=== PATIENT | female | born 1945 | race African-American/Black ===

== ENCOUNTER 2016-08-27 19:43 | Inpatient (IN) | payer MEDICARE ==
[~2016-08-27] VITALS: Ht 167.6 cm; Wt 143.6 kg
[~2016-08-27 19:43] MED LIST: ADVAIR INH; CRESTOR PO; FURO40TA5 PO; INSULIN DETEMIR SUBCUT; IPRA3AMP9 HHN; LEVO500T15 PO; LEVOTHROXINE PO; Metoprolol Tartrate PO; P50 PO; PANT40TA4 PO; PHEN100C4 PO; PULM50 HHN
[2016-08-27] MEDS ORDERED: LEVOFLOXACIN 750MG PREMIX 150 ML IV ONE (21:15)
[2016-08-27] MEDS ORDERED: VANCOMYCIN 1 G PREMIX 200 ML IV ONE (21:15)
[2016-08-27] MEDS ORDERED: MORPHINE SULFATE 4 MG/ML CPJ (NOT FOR IM USE) IV STA (21:15)
[2016-08-27] MEDS ORDERED: ONDANSETRON HCL 4MG/2ML VIAL IV STA (21:15)
[2016-08-27 21:48] LABS: INR 1.1; PROTHROMBIN TIME 11.9 sec
[2016-08-27 21:50] LABS: ALBUMIN 2.7 g/dL (3.4-5.0); CALCIUM 8.8 mg/dL (8.5-10.1); CHLORIDE 90 mEq/L (98-107); INDEX HEMOLYSI 1 (1-3); INDEX ICTERIC 1 (1-4); INDEX LIPEMIC 1 (1-3); UREA NITROGEN BLOOD 8 mg/dL (7-21)
[2016-08-27 21:51] LABS: BASOPHILS % 0.6 % (0.0-2.0); EOSINOPHILS % 0.1 % (0.0-5.0); HEMATOCRIT. 32.3 % (36.0-48.0); HEMOGLOBIN. 10.5 g/dL (12.0-16.0); LYMPHOCYTES % 20.3 % (20.0-50.0); MEAN CORPUSCULAR HEMOGLOBIN 31.7 pg (28.0-32.0); MEAN CORPUSCULAR HGB CONC 32.4 g/dL (31.0-37.0); PLATELET 338 x1000/uL (130-400); WHITE BLOOD COUNT 7.4 x1000/uL (4.5-11.0)
[2016-08-27 21:54] LABS: ALANINE AMINOTRANSFERASE 9 IU/L (13-61); ANION GAP 9; eGFR > 60 mL/min (>60)
[2016-08-27 21:56] LABS: NT PRO B-TYPE NATRIURETIC PEP 1311 pg/mL (5-125); TROPONIN I < 0.02 ng/mL (0.00-0.04)
[2016-08-27 21:57] LABS: CARBON DIOXIDE 42 mEq/L (21-32)
[2016-08-28] MEDS ORDERED: MORPHINE SULFATE 4 MG/ML CPJ (NOT FOR IM USE) IV ONE (00:30)
[2016-08-28] MEDS ORDERED: ONDANSETRON HCL 4MG/2ML VIAL IV ONE (00:30)
[2016-08-28] MEDS ORDERED: SODIUM CHLORIDE 0.9% 1,000 ML IV SCH (00:31)
[2016-08-28 00:38] LABS: CLARITY URINE TURBID (CLEAR); COLOR URINE DARK YELLOW (YELLOW); GLUCOSE URINE NEGATIVE (NEGATIVE); KETONES URINE TRACE (NEGATIVE); LEUKOCYTE ESTERASE URINE 2+ (NEGATIVE); NITRITE URINE NEGATIVE (NEGATIVE); OCCULT BLOOD URINE NEGATIVE (NEGATIVE); PH URINE 7.5 (4.5-8.0); PROTEIN URINE 1+ (NEGATIVE); SPECIFIC GRAVITY URINE 1.034 (1.005-1.030)
[2016-08-28] MEDS ORDERED: IPRATROPIUM/ALBUTEROL 0.5-3(2.5)MG/3ML NEB INH PRN ×2 (00:45→13:15)
[2016-08-28] MEDS ORDERED: DOCUSATE SODIUM 100MG CAPSULE PO PRN ×2 (00:45→13:15)
[2016-08-28] MEDS ORDERED: LORAZEPAM 2MG/ML CPJ IV ONE (00:45)
[2016-08-28] MEDS ORDERED: ACETAMINOPHEN 325MG TABLET PO PRN (00:45)
[2016-08-28] MEDS ORDERED: ONDANSETRON HCL 4MG/2ML VIAL IV PRN ×2 (00:45→13:15)
[2016-08-28 01:36] LABS: MUCUS URINE TRACE /lpf (< = 2+)
[2016-08-28 01:37] LABS: RBC URINE 0-2 /hpf (0-2)
[2016-08-28 01:41] LABS: SQUAMOUS EPITHELIAL CELL URINE FEW /lpf (RARE/1+)
[2016-08-28 01:42] LABS: BACTERIA URINE 4+; WBC URINE 50-100 /hpf (0-2)
[2016-08-28] MEDS ORDERED: DEXTROSE 50% WATER 50ML SYRINGE IV PRN (03:15)
[2016-08-28 03:45] VITALS: BP 90/61
[2016-08-28 05:16] VITALS: BP 107/56
[2016-08-28] MEDS: HYDROCODONE/ACETAMINOPHEN 5/325MG TABLET PO PRN ×2 (05:19→10:10)
[2016-08-28 05:23] LABS: *AMPHETAMINES SCREEN URINE NEGATIVE (NEGATIVE); *BARBITURATES SCREEN URINE NEGATIVE (NEGATIVE); *BENZODIAZEPINES SCREEN URINE NEGATIVE (NEGATIVE); *COCAINE SCREEN URINE NEGATIVE (NEGATIVE); CANNABINOID URINE SCREEN NEGATIVE (NEGATIVE); ECSTASY MDMA SCREEN URINE NEGATIVE (NEGATIVE); METHADONE URINE SCREEN NEGATIVE (NEGATIVE); OPIATES URINE SCREEN PRESUMTIVE POSITIVE (NEGATIVE); PHENCYCLIDINE URINE SCREEN NEGATIVE (NEGATIVE)
[2016-08-28] MEDS: BLOOD SUGAR DIAGNOSTIC STRIP TEST SCH ×4 (06:27→21:00)
[2016-08-28] MEDS: OMEPRAZOLE 20MG CAPSULE EXTENDED RELEASE PO SCH (06:29)
[2016-08-28] MEDS ORDERED: POTASSIUM CHLORIDE 20MEQ TABLET SR PO SCH ×2 (06:30→13:00)
[2016-08-28 07:26] LABS: HEMATOCRIT. 30.7 % (36.0-48.0); HEMOGLOBIN. 9.8 g/dL (12.0-16.0); MEAN CORPUSCULAR HEMOGLOBIN 31.2 pg (28.0-32.0); MEAN CORPUSCULAR HGB CONC 31.9 g/dL (31.0-37.0); MEAN CORPUSCULAR VOLUME 97.7 fL (81.0-99.0); PLATELET 335 x1000/uL (130-400); RED BLOOD CELL COUNT 3.14 mill/uL (4.2-5.4); RED CELL DISTRIBUTION WIDTH 14.2 % (11.6-14.6); WHITE BLOOD COUNT 6.2 x1000/uL (4.5-11.0)
[2016-08-28 07:53] LABS: ANION GAP 9; CALCIUM 8.7 mg/dL (8.5-10.1); CHLORIDE 90 mEq/L (98-107); INDEX HEMOLYSI 1 (1-3); INDEX ICTERIC 1 (1-4); INDEX LIPEMIC 1 (1-3); UREA NITROGEN BLOOD 7 mg/dL (7-21); eGFR > 60 mL/min (>60)
[2016-08-28 08:00] VITALS: BP 109/58
[2016-08-28 08:00] LABS: CARBON DIOXIDE 42 mEq/L (21-32)
[2016-08-28] MEDS: INSULIN LISPRO 100 UNITS/ML SUBCUT SCH ×4 (08:47→22:06)
[2016-08-28] MEDS ORDERED: ENOXAPARIN 40MG/0.4ML SYR SUBCUT SCH ×2 (09:00→13:15)
[2016-08-28 12:00] VITALS: BP 110/61
[2016-08-28] MEDS ORDERED: VANCOMYCIN 1500MG in DEXTROSE 5% WATER 250ML IV SCH (12:00)
[2016-08-28 12:35] LABS: PLATELET ESTIMATE NORMAL
[2016-08-28] MEDS ORDERED: MORPHINE SULFATE 2 MG/ML CPJ (NOT FOR IM USE) IV PRN (13:15)
[2016-08-28 14:07] LABS: INDEX HEMOLYSI 1 (1-3); INDEX ICTERIC 1 (1-4); INDEX LIPEMIC 1 (1-3); IRON 66 ug/dL (50-175); TOTAL IRON BINDING CAPACITY 285 ug/dL (250-450)
[2016-08-28] MEDS ORDERED: ACETAMINOPHEN WITH CODEINE 300/60MG TABLET PO PRN (14:30)
[2016-08-28 15:02] LABS: BG BASE EXCESS 13.1 mmol/L (-2.0-2.0); BG CARBOXYHEMOGLOBIN 0.8 % (0.5-1.5); BG DEOXYHEMOGLOBIN 7.9 % (0.0-5.0); BG FRACTION INSPIRED OXYGEN 21; BG HCO3 ACT 38.7 mmol/L (22.0-26.0); BG METHEMOGLOBIN 0.3 % (0.0-1.5); BG PCO2 55.6 mmHg (35.0-45.0); BG PH 7.461 (7.350-7.450); BG PO2 58.6 mmHg (75.0-100.0); BG SAMPLE SITE LEFT RADIAL; BG TOTAL HEMOGLOBIN 10.5 g/dL (12.0-18.0); BG VENT MODE ROOM AIR
[2016-08-28] MEDS ORDERED: CLOP75TA33 PO (15:06)
[2016-08-28] MEDS ORDERED: ONDA4TAB5 PO (15:06)
[2016-08-28] MEDS ORDERED: PRED5TAB48 PO (15:06)
[2016-08-28] MEDS ORDERED: CLON0.1T PO (15:06)
[2016-08-28] MEDS ORDERED: CLONIDINE 0.1MG TABLET PO PRN (15:15)
[2016-08-28 16:00] VITALS: BP 107/55
[2016-08-28] MEDS: CLOPIDOGREL 75MG TABLET PO SCH (16:19)
[2016-08-28] MEDS: CLOTRIMAZOLE 1% CREAM 30GM TOP SCH ×2 (16:19→21:59)
[2016-08-28] MEDS: PHENYTOIN SODIUM EXTENDED 100MG CAPSULE PO SCH (16:19)
[2016-08-28] MEDS ORDERED: VANCOMYCIN 1 G PREMIX 200 ML IV SCH (17:00)
[2016-08-28] MEDS: ACETAMINOPHEN WITH CODEINE 300/60MG TABLET PO PRN ×2 (17:26→21:58)
[2016-08-28 20:00] VITALS: BP 90/47
[2016-08-28] MEDS ORDERED: ZOLPIDEM TARTRATE 5MG TABLET PO PRN (21:00)
[2016-08-28] MEDS ORDERED: METOPROLOL TARTRATE PO SCH (21:00)
[2016-08-28] MEDS: METOPROLOL TARTRATE 25MG TABLET PO SCH (21:00)
[2016-08-28] MEDS: PANTOT AC/MIN OIL/PET HY-PHL OINT 52.5GM (AQUAPHOR) TOP SCH (22:00)
[2016-08-28] MEDS ORDERED: LEVOFLOXACIN 500MG PREMIX 100 ML IV SCH (22:00)
[2016-08-28] MEDS: ENOXAPARIN 150MG/ML SYR SUBCUT SCH (22:59)
[2016-08-28] MEDS: INSULIN DETEMIR UD 100 UNITS/ML SYR SUBCUT SCH (23:00)
[2016-08-29] VITALS: BP 94/55
[2016-08-29 04:00] VITALS: BP 118/52
[2016-08-29] MEDS: VANCOMYCIN 1 G PREMIX 200 ML IV SCH (06:38)
[2016-08-29] MEDS: ACETAMINOPHEN WITH CODEINE 300/60MG TABLET PO PRN ×2 (06:40→20:45)
[2016-08-29 06:45] LABS: ANION GAP 10; CALCIUM 8.7 mg/dL (8.5-10.1); CARBON DIOXIDE 39 mEq/L (21-32); CHLORIDE 93 mEq/L (98-107); INDEX HEMOLYSI 1 (1-3); INDEX ICTERIC 1 (1-4); INDEX LIPEMIC 1 (1-3); MAGNESIUM 1.9 mg/dL (1.8-2.4); PHENYTOIN 1.6 ug/mL (10-20); UREA NITROGEN BLOOD 10 mg/dL (7-21); eGFR > 60 mL/min (>60)
[2016-08-29 07:06] LABS: BASOPHILS % 0.4 % (0.0-2.0); EOSINOPHILS % 0.1 % (0.0-5.0); HEMATOCRIT. 29.8 % (36.0-48.0); HEMOGLOBIN. 9.7 g/dL (12.0-16.0); LYMPHOCYTES % 33.7 % (20.0-50.0); MEAN CORPUSCULAR HEMOGLOBIN 32.4 pg (28.0-32.0); MEAN CORPUSCULAR HGB CONC 32.5 g/dL (31.0-37.0); MEAN CORPUSCULAR VOLUME 99.7 fL (81.0-99.0); MEAN PLATELET VOLUME 8.4 fl (7.4-10.4); MONOCYTES % 10.6 % (2.0-8.0); NEUTROPHILS % 55.2 % (40.0-76.0); PLATELET 267 x1000/uL (130-400); RED BLOOD CELL COUNT 2.99 mill/uL (4.2-5.4); RED CELL DISTRIBUTION WIDTH 14.2 % (11.6-14.6); WHITE BLOOD COUNT 5.6 x1000/uL (4.5-11.0)
[2016-08-29] MEDS: BLOOD SUGAR DIAGNOSTIC STRIP TEST SCH ×4 (07:23→21:00)
[2016-08-29] MEDS: LEVOTHYROXINE SODIUM 100MCG TABLET PO SCH (07:40)
[2016-08-29] MEDS: OMEPRAZOLE 20MG CAPSULE EXTENDED RELEASE PO SCH (07:40)
[2016-08-29 08:00] VITALS: BP 118/69
[2016-08-29] MEDS: PHENYTOIN SODIUM EXTENDED 100MG CAPSULE PO SCH ×3 (09:00→17:00)
[2016-08-29] MEDS: FUROSEMIDE 40MG TABLET PO SCH (09:00)
[2016-08-29] MEDS: METOPROLOL TARTRATE 25MG TABLET PO SCH ×2 (09:00→21:00)
[2016-08-29] MEDS: CLOPIDOGREL 75MG TABLET PO SCH (09:00)
[2016-08-29] MEDS: ENOXAPARIN 150MG/ML SYR SUBCUT SCH ×2 (09:00→22:40)
[2016-08-29] MEDS ORDERED: PANTOPRAZOLE 40MG DR TABLET PO SCH (09:00)
[2016-08-29] MEDS: INSULIN LISPRO 100 UNITS/ML SUBCUT SCH ×3 (09:15→22:41)
[2016-08-29] MEDS ORDERED: PHENYTOIN SODIUM 500 MG in SODIUM CHLORIDE 0.9% 50 ML IV SCH (10:00)
[2016-08-29 12:00] VITALS: BP 96/75
[2016-08-29] MEDS: CLOTRIMAZOLE 1% CREAM 30GM TOP SCH ×2 (12:03→22:46)
[2016-08-29] MEDS: PANTOT AC/MIN OIL/PET HY-PHL OINT 52.5GM (AQUAPHOR) TOP SCH ×2 (12:03→22:47)
[2016-08-29] MEDS: PREDNISONE 5MG TABLET PO SCH (15:45)
[2016-08-29 16:00] VITALS: BP 104/56
[2016-08-29] MEDS ORDERED: LIDOCAINE HCL/PF 2% 20MG/ML 5 ML/VIAL ONE (17:13)
[2016-08-29] MEDS ORDERED: GENTAMICIN SULF 40MG/ML 2ML VIAL ONE (17:13)
[2016-08-29] MEDS ORDERED: BACITRACIN 50,000 UNITS/VIAL ONE (17:14)
[2016-08-29] MEDS ORDERED: BUPIVACAINE HCL/PF 0.5% (5MG/ML) 10ML ONE (17:14)
[2016-08-29] MEDS ORDERED: NORMAL SALINE 0.9% 10 ML SYR ONE (17:14)
[2016-08-29] MEDS ORDERED: MIDAZOLAM HCL 5 MG/5 ML VIAL ONE (17:50)
[2016-08-29] MEDS ORDERED: PROPOFOL 200MG/20ML VIAL IV ONE (18:04)
[2016-08-29 20:00] VITALS: BP 111/66
[2016-08-29] MEDS ORDERED: LEVOFLOXACIN 500MG PREMIX 100 ML IV SCH (23:00)
[2016-08-29] MEDS: INSULIN DETEMIR UD 100 UNITS/ML SYR SUBCUT SCH (23:57)
[2016-08-30] VITALS: BP 90/58
[2016-08-30] MEDS: ACETAMINOPHEN WITH CODEINE 300/60MG TABLET PO PRN ×4 (00:25→18:00)
[2016-08-30] MEDS: VANCOMYCIN 1 G PREMIX 200 ML IV SCH ×2 (02:01→18:00)
[2016-08-30 04:00] VITALS: BP 111/40
[2016-08-30] MEDS ORDERED: SODIUM CHLORIDE 0.9% 250 ML IV ONE (04:00)
[2016-08-30] MEDS: MORPHINE SULFATE 2 MG/ML CPJ (NOT FOR IM USE) IV PRN ×3 (05:14→23:26)
[2016-08-30] MEDS: BLOOD SUGAR DIAGNOSTIC STRIP TEST SCH ×4 (07:40→21:00)
[2016-08-30 08:00] VITALS: BP 111/65
[2016-08-30] MEDS: PHENYTOIN SODIUM EXTENDED 100MG CAPSULE PO SCH ×3 (08:46→16:38)
[2016-08-30] MEDS: FAMOTIDINE 20MG TABLET PO SCH ×2 (08:46→16:38)
[2016-08-30] MEDS: LEVOTHYROXINE SODIUM 100MCG TABLET PO SCH (08:46)
[2016-08-30] MEDS: CLOPIDOGREL 75MG TABLET PO SCH (08:47)
[2016-08-30] MEDS: PREDNISONE 5MG TABLET PO SCH (08:48)
[2016-08-30] MEDS: FUROSEMIDE 40MG TABLET PO SCH (08:48)
[2016-08-30] MEDS: ENOXAPARIN 150MG/ML SYR SUBCUT SCH ×2 (08:50→22:57)
[2016-08-30] MEDS: INSULIN LISPRO 100 UNITS/ML SUBCUT SCH ×4 (08:50→21:00)
[2016-08-30] MEDS: METOPROLOL TARTRATE 25MG TABLET PO SCH ×2 (08:52→21:00)
[2016-08-30] MEDS: PANTOT AC/MIN OIL/PET HY-PHL OINT 52.5GM (AQUAPHOR) TOP SCH ×2 (09:04→22:58)
[2016-08-30] MEDS: CLOTRIMAZOLE 1% CREAM 30GM TOP SCH ×2 (09:04→21:00)
[2016-08-30 12:00] VITALS: BP 104/49
[2016-08-30 16:00] VITALS: BP 105/61
[2016-08-30 20:00] VITALS: BP 109/66
[2016-08-30] MEDS: ASCORBIC ACID 250 MG TABLET PO SCH (22:57)
[2016-08-30] MEDS: SULFAMETHOXAZOLE/TRIMETHOPRIM 800/160MG TABLET PO SCH (23:00)
[2016-08-30] MEDS: INSULIN DETEMIR UD 100 UNITS/ML SYR SUBCUT SCH (23:10)
[2016-08-31] VITALS: BP 116/64
[2016-08-31 04:00] VITALS: BP 102/60
[2016-08-31] MEDS: MORPHINE SULFATE 2 MG/ML CPJ (NOT FOR IM USE) IV PRN ×4 (05:59→21:22)
[2016-08-31 06:34] LABS: BASOPHILS % 0.4 % (0.0-2.0); EOSINOPHILS % 0.3 % (0.0-5.0); HEMATOCRIT. 31.2 % (36.0-48.0); HEMOGLOBIN. 10.1 g/dL (12.0-16.0); LYMPHOCYTES % 35.7 % (20.0-50.0); MEAN CORPUSCULAR HEMOGLOBIN 32.3 pg (28.0-32.0); MEAN CORPUSCULAR HGB CONC 32.4 g/dL (31.0-37.0); MEAN CORPUSCULAR VOLUME 99.6 fL (81.0-99.0); MEAN PLATELET VOLUME 8.4 fl (7.4-10.4); MONOCYTES % 10.6 % (2.0-8.0); PLATELET 249 x1000/uL (130-400); RED BLOOD CELL COUNT 3.13 mill/uL (4.2-5.4); RED CELL DISTRIBUTION WIDTH 14.2 % (11.6-14.6); WHITE BLOOD COUNT 5.5 x1000/uL (4.5-11.0)
[2016-08-31] MEDS: BLOOD SUGAR DIAGNOSTIC STRIP TEST SCH ×4 (06:36→21:32)
[2016-08-31 08:00] VITALS: BP 111/59
[2016-08-31] MEDS: INSULIN LISPRO 100 UNITS/ML SUBCUT SCH ×4 (08:10→21:32)
[2016-08-31] MEDS: METOPROLOL TARTRATE 25MG TABLET PO SCH ×2 (09:00→21:20)
[2016-08-31] MEDS: PREDNISONE 5MG TABLET PO SCH (09:20)
[2016-08-31] MEDS: FAMOTIDINE 20MG TABLET PO SCH ×2 (09:20→18:37)
[2016-08-31] MEDS: PHENYTOIN SODIUM EXTENDED 100MG CAPSULE PO SCH ×3 (09:20→18:37)
[2016-08-31] MEDS: LEVOTHYROXINE SODIUM 100MCG TABLET PO SCH (09:20)
[2016-08-31] MEDS: ACETAMINOPHEN WITH CODEINE 300/60MG TABLET PO PRN ×2 (09:25→13:49)
[2016-08-31] MEDS: SULFAMETHOXAZOLE/TRIMETHOPRIM 800/160MG TABLET PO SCH ×2 (09:25→21:20)
[2016-08-31] MEDS: CLOPIDOGREL 75MG TABLET PO SCH (09:25)
[2016-08-31 09:26] LABS: ANION GAP 9; CALCIUM 8.9 mg/dL (8.5-10.1); CARBON DIOXIDE 39 mEq/L (21-32); CHLORIDE 96 mEq/L (98-107); INDEX HEMOLYSI 1 (1-3); INDEX ICTERIC 1 (1-4); INDEX LIPEMIC 1 (1-3); UREA NITROGEN BLOOD 9 mg/dL (7-21)
[2016-08-31] MEDS: FUROSEMIDE 40MG TABLET PO SCH (09:26)
[2016-08-31] MEDS: ZINC SULFATE 220 MG ( 50 ) CAPSULE PO SCH (09:26)
[2016-08-31] MEDS: MULTIVITAMINS,THER W-MINERALS TABLET PO SCH (09:26)
[2016-08-31] MEDS: ENOXAPARIN 150MG/ML SYR SUBCUT SCH ×2 (09:29→21:27)
[2016-08-31] MEDS: ASCORBIC ACID 250 MG TABLET PO SCH ×2 (09:34→21:20)
[2016-08-31 09:37] LABS: eGFR > 60 mL/min (>60)
[2016-08-31 12:00] VITALS: BP 109/65
[2016-08-31] MEDS: VANCOMYCIN 1 G PREMIX 200 ML IV SCH (13:52)
[2016-08-31 16:00] VITALS: BP 125/65
[2016-08-31] MEDS: CLOTRIMAZOLE 1% CREAM 30GM TOP SCH ×2 (18:38→21:21)
[2016-08-31] MEDS: PANTOT AC/MIN OIL/PET HY-PHL OINT 52.5GM (AQUAPHOR) TOP SCH ×2 (18:38→21:21)
[2016-08-31 20:00] VITALS: BP 118/70
[2016-08-31] MEDS: INSULIN DETEMIR UD 100 UNITS/ML SYR SUBCUT SCH (21:32)
[2016-09-01] VITALS: BP 122/72
[2016-09-01 04:00] VITALS: BP 126/86
[2016-09-01] MEDS: VANCOMYCIN 1 G PREMIX 200 ML IV SCH (05:39)
[2016-09-01] MEDS: BLOOD SUGAR DIAGNOSTIC STRIP TEST SCH ×2 (05:42→12:38)
[2016-09-01 08:00] VITALS: BP 119/63
[2016-09-01] MEDS: LEVOTHYROXINE SODIUM 100MCG TABLET PO SCH (08:08)
[2016-09-01] MEDS: INSULIN LISPRO 100 UNITS/ML SUBCUT SCH ×2 (08:09→12:50)
[2016-09-01] MEDS: ACETAMINOPHEN WITH CODEINE 300/60MG TABLET PO PRN ×3 (08:53→17:23)
[2016-09-01] MEDS: SULFAMETHOXAZOLE/TRIMETHOPRIM 800/160MG TABLET PO SCH (09:02)
[2016-09-01] MEDS: MULTIVITAMINS,THER W-MINERALS TABLET PO SCH (09:02)
[2016-09-01] MEDS: ZINC SULFATE 220 MG ( 50 ) CAPSULE PO SCH (09:02)
[2016-09-01] MEDS: FUROSEMIDE 40MG TABLET PO SCH (09:02)
[2016-09-01] MEDS: CLOPIDOGREL 75MG TABLET PO SCH (09:03)
[2016-09-01] MEDS: FAMOTIDINE 20MG TABLET PO SCH (09:03)
[2016-09-01] MEDS: ASCORBIC ACID 250 MG TABLET PO SCH (09:03)
[2016-09-01] MEDS: PHENYTOIN SODIUM EXTENDED 100MG CAPSULE PO SCH ×2 (09:04→12:48)
[2016-09-01] MEDS: ENOXAPARIN 150MG/ML SYR SUBCUT SCH (09:06)
[2016-09-01] MEDS: METOPROLOL TARTRATE 25MG TABLET PO SCH (09:06)
[2016-09-01] MEDS: CLOTRIMAZOLE 1% CREAM 30GM TOP SCH (09:07)
[2016-09-01] MEDS: PANTOT AC/MIN OIL/PET HY-PHL OINT 52.5GM (AQUAPHOR) TOP SCH (09:07)
[2016-09-01] MEDS: PREDNISONE 5MG TABLET PO SCH (09:15)
[2016-09-01 12:00] VITALS: BP 100/59
[2016-09-01] MEDS ORDERED: MAGNESIUM CITRATE 300ML SOLUTION PO NR (12:15)
[2016-09-01] MEDS ORDERED: DOCUSATE SODIUM 100MG CAPSULE PO SCH (17:00)
[2016-09-01 17:23] VITALS: BP 110/68
[2016-09-01] MEDS ORDERED: VANCOMYCIN 1 G PREMIX 200 ML IV SCH (18:00)
== END 2016-09-01 17:32 | DRG 853 ==
LOC: ER 19:44 → 7WST 08-28 00:19 → SUPCPDRO 08-28 00:30
PROVIDERS: ADMIT Family Medicine Adult Medicine; ATTEND Family Medicine Adult Medicine
PROC: 5A09457 Assistance with Respiratory Ventilation, 24-96 Consecutive Hours, Continuous Positive Airway Pressure (ICD-10-PCS; principal; 2016-08-28)
PROC: 0QBM0ZZ Excision of Left Tarsal, Open Approach (ICD-10-PCS; 2016-08-29)
DX: A41.9 Sepsis, unspecified organism (principal); L89.624 Pressure ulcer of left heel, stage 4; J96.01 Acute respiratory failure with hypoxia; I50.40 Unspecified combined systolic (congestive) and diastolic (congestive) heart failure; Z68.43 Body mass index [BMI] 50.0-59.9, adult; L03.90 Cellulitis, unspecified; E44.0 Moderate protein-calorie malnutrition; M86.672 Other chronic osteomyelitis, left ankle and foot; E11.621 Type 2 diabetes mellitus with foot ulcer; B96.20 Unspecified Escherichia coli [E. coli] as the cause of diseases classified elsewhere; B96.89 Other specified bacterial agents as the cause of diseases classified elsewhere; D64.9 Anemia, unspecified; E03.9 Hypothyroidism, unspecified; E11.622 Type 2 diabetes mellitus with other skin ulcer; E11.65 Type 2 diabetes mellitus with hyperglycemia; E66.01 Morbid (severe) obesity due to excess calories; E78.5 Hyperlipidemia, unspecified; N30.90 Cystitis, unspecified without hematuria; E87.6 Hypokalemia; G40.909 Epilepsy, unspecified, not intractable, without status epilepticus; G47.33 Obstructive sleep apnea (adult) (pediatric); I11.0 Hypertensive heart disease with heart failure; I27.2 Other secondary pulmonary hypertension; I48.2 Chronic atrial fibrillation; I89.0 Lymphedema, not elsewhere classified; G43.909 Migraine, unspecified, not intractable, without status migrainosus; J44.9 Chronic obstructive pulmonary disease, unspecified; E87.8 Other disorders of electrolyte and fluid balance, not elsewhere classified; H26.9 Unspecified cataract; E11.69 Type 2 diabetes mellitus with other specified complication; L30.9 Dermatitis, unspecified; L89.159 Pressure ulcer of sacral region, unspecified stage; L97.529 Non-pressure chronic ulcer of other part of left foot with unspecified severity; M81.0 Age-related osteoporosis without current pathological fracture; Z79.4 Long term (current) use of insulin; Z83.3 Family history of diabetes mellitus; Z86.73 Personal history of transient ischemic attack (TIA), and cerebral infarction without residual deficits; Z99.81 Dependence on supplemental oxygen; Z88.0 Allergy status to penicillin
CPT/HCPCS: 36415; 36600; 71010; 73630; 80048; 80053; 80185; 80202; 80305; 81001; 82375; 82805; 82962; 83036; 83540; 83550; 83605; 83735; 83880; 84443; 84484; 85007; 85025; 85027; 85610; 85651; 86140; 87040; 87070; 87075; 87077; 87086; 87186; 87205; 88304; 88311; 93005; 93306; 93970; 94660; 96365; 96366; 96367; 96375; 96376; 99285; A4216; A6261; C1893; J1165; J1580; J1650; J1815; J1956; J2060; J2250; J2270; J2405; J2704; J3370; J3490; J7050; J7060; J7512

== ENCOUNTER 2017-03-20 03:29 | Inpatient (IN) | payer MEDICARE, MEDICAID ==
[~2017-03-20] VITALS: Ht 175.3 cm; Wt 139.7 kg
[~2017-03-20 03:29] MED LIST changes: -ADVAIR INH; +CLON0.1T PO; +CLOP75TA33 PO; -FURO40TA5 PO; -IPRA3AMP9 HHN; -LEVO500T15 PO; -LEVOTHROXINE PO; -Metoprolol Tartrate PO; -P50 PO; -PULM50 HHN
[2017-03-20] MEDS ORDERED: LEVOFLOXACIN 500MG TABLET ONE ×2 (04:29)
[2017-03-20] MEDS ORDERED: ASPIRIN 81MG EC TABLET PO ONE ×2 (04:29→04:30)
[2017-03-20] MEDS ORDERED: DIPHENHYDRAMINE 50MG/ML VIAL ONE ×2 (04:29→04:31)
[2017-03-20] MEDS ORDERED: MORPHINE SULFATE 10 MG/ML CPJ ONE ×2 (04:29→04:31)
[2017-03-20] MEDS ORDERED: NITROGLYCERIN 0.4MG TABLET SL SL PRN (07:45)
[2017-03-20] MEDS ORDERED: DIPHENHYDRAMINE 50MG/ML VIAL IV PRN (07:45)
[2017-03-20] MEDS ORDERED: DOCUSATE SODIUM 100MG CAPSULE PO PRN (07:45)
[2017-03-20] MEDS ORDERED: GUAIFENESIN 200MG/10ML SUGAR FREE UDC PO PRN (07:45)
[2017-03-20] MEDS ORDERED: ACETAMINOPHEN 325MG TABLET PO PRN (07:45)
[2017-03-20] MEDS ORDERED: ZOLPIDEM TARTRATE 5MG TABLET PO PRN (07:45)
[2017-03-20] MEDS ORDERED: IPRATROPIUM/ALBUTEROL 0.5-3(2.5)MG/3ML NEB INH PRN (07:45)
[2017-03-20] MEDS ORDERED: CLONIDINE 0.1MG TABLET PO PRN (07:45)
[2017-03-20] MEDS ORDERED: MAGNESIUM/ALUMINUM HYDROXIDE/SIMETHICONE 30ML UDC PO PRN (07:45)
[2017-03-20] MEDS ORDERED: MORPHINE SULFATE 2 MG/ML CPJ (NOT FOR IM USE) IV PRN (07:45)
[2017-03-20] MEDS ORDERED: ONDANSETRON HCL 4MG/2ML VIAL IV PRN (07:45)
[2017-03-20] MEDS ORDERED: LORAZEPAM 2MG/ML CPJ IV PRN (07:45)
[2017-03-20] MEDS ORDERED: NA PHOS,M-B/NA PHOS,DI-BA ENEMA 118ML PR PRN (07:45)
[2017-03-20] MEDS ORDERED: DEXTROSE 50% WATER 50ML SYRINGE IV PRN (08:00)
[2017-03-20] MEDS: INSULIN LISPRO 100 UNITS/ML SUBCUT SCH ×4 (08:20→21:00)
[2017-03-20 08:39] LABS: HDL CHOLESTEROL 63 mg/dL (40-59); LDL CHOLESTEROL 67 mg/dL (5-100); T4 FREE 1.06 ng/dL (0.76-1.46)
[2017-03-20 08:56] LABS: FOLIC ACID (FOLATE) SERUM 14.2 ng/mL (>5.38)
[2017-03-20] MEDS: BLOOD SUGAR DIAGNOSTIC STRIP TEST SCH ×4 (09:00→20:56)
[2017-03-20 09:34] LABS: BASOPHILS % 0.5 % (0.0-2.0); EOSINOPHILS % 0.1 % (0.0-5.0); HEMATOCRIT. 30.1 % (36.0-48.0); HEMOGLOBIN. 9.6 g/dL (12.0-16.0); LYMPHOCYTES % 26.8 % (20.0-50.0); MEAN CORPUSCULAR HEMOGLOBIN 32.2 pg (28.0-32.0); MEAN CORPUSCULAR VOLUME 101.2 fL (81.0-99.0); MEAN PLATELET VOLUME 8.5 fl (7.4-10.4); MONOCYTES % 7.9 % (2.0-8.0); NEUTROPHILS % 64.7 % (40.0-76.0); PLATELET 249 x1000/uL (130-400); RED BLOOD CELL COUNT 2.98 mill/uL (4.2-5.4); RED CELL DISTRIBUTION WIDTH 14.9 % (11.6-14.6)
[2017-03-20 09:45] LABS: CARBON DIOXIDE 38 mEq/L (21-32); CHLORIDE 95 mEq/L (98-107)
[2017-03-20 10:17] LABS: INR 1.1; PARTIAL THROMBOPLASTIN TIME 25.7 sec (23.4-31.0); PROTHROMBIN TIME 11.9 sec (9.4-11.6)
[2017-03-20 12:03] VITALS: BP 109/49
[2017-03-20 13:00] VITALS: BP 114/63
[2017-03-20] MEDS: ZINC SULFATE 220 MG ( 50 ) CAPSULE PO SCH (13:59)
[2017-03-20] MEDS: CLOPIDOGREL 75MG TABLET PO SCH (13:59)
[2017-03-20] MEDS: METOPROLOL TARTRATE 25MG TABLET PO SCH ×3 (14:01→21:00)
[2017-03-20] MEDS: TRAMADOL 50MG TABLET PO PRN (14:02)
[2017-03-20] MEDS: ENOXAPARIN 40MG/0.4ML SYR SUBCUT SCH (14:04)
[2017-03-20] MEDS: FAMOTIDINE 20MG/2ML VIAL IV SCH ×2 (14:04→20:55)
[2017-03-20 16:00] VITALS: BP 120/64
[2017-03-20] MEDS: INSULIN DETEMIR UD 100 UNITS/ML SYR SUBCUT SCH (16:15)
[2017-03-20 17:30] LABS: CREATINE KINASE MB FRACTION 0.7 ng/mL (0.5-3.6); TROPONIN I 0.03 ng/mL (0.00-0.04)
[2017-03-20] MEDS: SPIRONOLACTONE 25MG TABLET PO SCH (19:00)
[2017-03-20] MEDS: FUROSEMIDE 40MG/4ML VIAL IVP SCH (19:00)
[2017-03-20 20:00] VITALS: BP 140/89
[2017-03-20] MEDS: ASCORBIC ACID 500 MG TABLET PO SCH (20:56)
[2017-03-20] MEDS: PHENYTOIN SODIUM EXTENDED 100MG CAPSULE PO SCH (20:56)
[2017-03-21] VITALS: BP 130/98
[2017-03-21 01:18] LABS: CREATINE KINASE 75 IU/L (26-192); CREATINE KINASE MB FRACTION < 0.5 ng/mL (0.5-3.6); TROPONIN I 0.03 ng/mL (0.00-0.04)
[2017-03-21] MEDS: BLOOD SUGAR DIAGNOSTIC STRIP TEST SCH ×4 (07:20→21:31)
[2017-03-21 08:00] VITALS: BP 134/53
[2017-03-21] MEDS ORDERED: ZINC SULFATE 220 MG ( 50 ) CAPSULE PO SCH (09:00)
[2017-03-21] MEDS: ASCORBIC ACID 500 MG TABLET PO SCH ×2 (09:03→21:30)
[2017-03-21] MEDS: CLOPIDOGREL 75MG TABLET PO SCH (09:03)
[2017-03-21] MEDS: ZINC SULFATE 220 MG ( 50 ) CAPSULE PO SCH (09:03)
[2017-03-21] MEDS: FAMOTIDINE 20MG/2ML VIAL IV SCH ×2 (09:05→21:30)
[2017-03-21] MEDS: METOPROLOL TARTRATE 25MG TABLET PO SCH ×2 (09:05→21:30)
[2017-03-21] MEDS: INSULIN LISPRO 100 UNITS/ML SUBCUT SCH ×4 (09:06→21:35)
[2017-03-21 12:00] VITALS: BP 105/49
[2017-03-21] MEDS: INSULIN DETEMIR UD 100 UNITS/ML SYR SUBCUT SCH (13:21)
[2017-03-21] MEDS: ENOXAPARIN 40MG/0.4ML SYR SUBCUT SCH (13:21)
[2017-03-21 16:00] VITALS: BP 111/52
[2017-03-21] MEDS: SPIRONOLACTONE 25MG TABLET PO SCH (17:13)
[2017-03-21] MEDS: FUROSEMIDE 40MG/4ML VIAL IVP SCH (17:13)
[2017-03-21] MEDS: TRAMADOL 50MG TABLET PO PRN (17:19)
[2017-03-21 17:37] LABS: CLARITY URINE CLOUDY (CLEAR); COLOR URINE YELLOW (YELLOW); GLUCOSE URINE NEGATIVE (NEGATIVE); KETONES URINE NEGATIVE (NEGATIVE); LEUKOCYTE ESTERASE URINE 2+ (NEGATIVE); NITRITE URINE NEGATIVE (NEGATIVE); OCCULT BLOOD URINE NEGATIVE (NEGATIVE); PROTEIN URINE NEGATIVE (NEGATIVE); SPECIFIC GRAVITY URINE 1.017 (1.005-1.030)
[2017-03-21 17:50] LABS: *AMPHETAMINES SCREEN URINE NEGATIVE (NEGATIVE); *BARBITURATES SCREEN URINE NEGATIVE (NEGATIVE); *BENZODIAZEPINES SCREEN URINE NEGATIVE (NEGATIVE); *COCAINE SCREEN URINE NEGATIVE (NEGATIVE); CANNABINOID URINE SCREEN NEGATIVE (NEGATIVE); METHADONE URINE SCREEN NEGATIVE (NEGATIVE); OPIATES URINE SCREEN PRESUMTIVE POSITIVE (NEGATIVE); PHENCYCLIDINE URINE SCREEN NEGATIVE (NEGATIVE)
[2017-03-21] MEDS ORDERED: MORPHINE SULFATE 10 MG/ML CPJ IV PRN (19:45)
[2017-03-21 20:00] VITALS: BP 110/46
[2017-03-21] MEDS: PHENYTOIN SODIUM EXTENDED 100MG CAPSULE PO SCH (21:30)
[2017-03-22] VITALS: BP 113/48
[2017-03-22 04:00] VITALS: BP 116/50
[2017-03-22] MEDS: SPIRONOLACTONE 25MG TABLET PO SCH ×2 (06:22→17:38)
[2017-03-22] MEDS: FUROSEMIDE 40MG/4ML VIAL IVP SCH ×2 (06:22→17:38)
[2017-03-22] MEDS: BLOOD SUGAR DIAGNOSTIC STRIP TEST SCH ×4 (06:23→21:00)
[2017-03-22] MEDS: INSULIN LISPRO 100 UNITS/ML SUBCUT SCH ×4 (06:29→21:00)
[2017-03-22 07:59] VITALS: BP 107/52
[2017-03-22] MEDS: METOPROLOL TARTRATE 25MG TABLET PO SCH ×2 (09:00→21:00)
[2017-03-22] MEDS: TRAMADOL 50MG TABLET PO PRN ×2 (09:27→18:41)
[2017-03-22] MEDS: ZINC SULFATE 220 MG ( 50 ) CAPSULE PO SCH (09:27)
[2017-03-22] MEDS: ASCORBIC ACID 500 MG TABLET PO SCH ×2 (09:27→22:10)
[2017-03-22] MEDS: FAMOTIDINE 20MG/2ML VIAL IV SCH ×2 (09:27→21:00)
[2017-03-22] MEDS: CLOPIDOGREL 75MG TABLET PO SCH (09:27)
[2017-03-22] MEDS: INSULIN DETEMIR UD 100 UNITS/ML SYR SUBCUT SCH (11:11)
[2017-03-22 11:14] VITALS: BP 111/72
[2017-03-22] MEDS: ENOXAPARIN 40MG/0.4ML SYR SUBCUT SCH (13:50)
[2017-03-22 15:26] VITALS: BP 98/51
[2017-03-22 20:00] VITALS: BP 106/71
[2017-03-22] MEDS: PHENYTOIN SODIUM EXTENDED 100MG CAPSULE PO SCH (22:10)
[2017-03-23] VITALS: BP 136/57
[2017-03-23] MEDS: METOPROLOL TARTRATE 25MG TABLET PO SCH ×2 (00:24→21:00)
[2017-03-23 04:00] VITALS: BP 107/56
[2017-03-23] MEDS: INSULIN LISPRO 100 UNITS/ML SUBCUT SCH ×4 (06:41→21:00)
[2017-03-23] MEDS: BLOOD SUGAR DIAGNOSTIC STRIP TEST SCH ×4 (06:41→21:13)
[2017-03-23] MEDS: SPIRONOLACTONE 25MG TABLET PO SCH ×2 (06:45→18:42)
[2017-03-23] MEDS: FUROSEMIDE 40MG/4ML VIAL IVP SCH ×2 (06:45→18:43)
[2017-03-23 07:39] VITALS: BP 128/53
[2017-03-23] MEDS: ZINC SULFATE 220 MG ( 50 ) CAPSULE PO SCH (09:56)
[2017-03-23] MEDS: CLOPIDOGREL 75MG TABLET PO SCH (09:56)
[2017-03-23] MEDS: ASCORBIC ACID 500 MG TABLET PO SCH ×2 (09:56→21:45)
[2017-03-23] MEDS: FAMOTIDINE 20MG/2ML VIAL IV SCH ×2 (09:57→21:46)
[2017-03-23] MEDS: INSULIN DETEMIR UD 100 UNITS/ML SYR SUBCUT SCH (11:31)
[2017-03-23 12:15] VITALS: BP 113/48
[2017-03-23] MEDS: ENOXAPARIN 40MG/0.4ML SYR SUBCUT SCH (14:48)
[2017-03-23 15:54] VITALS: BP 109/35
[2017-03-23 20:00] VITALS: BP 100/60
[2017-03-23 21:01] LABS: BASOPHILS % 0.6 % (0.0-2.0); EOSINOPHILS % 0.1 % (0.0-5.0); HEMATOCRIT. 30.1 % (36.0-48.0); HEMOGLOBIN. 9.7 g/dL (12.0-16.0); LYMPHOCYTES % 26.1 % (20.0-50.0); MEAN CORPUSCULAR HEMOGLOBIN 32.9 pg (28.0-32.0); MEAN CORPUSCULAR VOLUME 102.4 fL (81.0-99.0); MEAN PLATELET VOLUME 8.7 fl (7.4-10.4); MONOCYTES % 8.2 % (2.0-8.0); PLATELET 197 x1000/uL (130-400); RED BLOOD CELL COUNT 2.94 mill/uL (4.2-5.4); RED CELL DISTRIBUTION WIDTH 14.1 % (11.6-14.6)
[2017-03-23 21:09] LABS: CHLORIDE 90 mEq/L (98-107)
[2017-03-23 21:19] LABS: CARBON DIOXIDE 43 mEq/L (21-32)
[2017-03-23] MEDS: PHENYTOIN SODIUM EXTENDED 100MG CAPSULE PO SCH (21:45)
[2017-03-24] VITALS: BP 106/70
[2017-03-24 04:00] VITALS: BP 148/80
[2017-03-24] MEDS: FUROSEMIDE 40MG/4ML VIAL IVP SCH ×2 (06:56→17:59)
[2017-03-24] MEDS: SPIRONOLACTONE 25MG TABLET PO SCH ×2 (06:57→17:59)
[2017-03-24] MEDS: BLOOD SUGAR DIAGNOSTIC STRIP TEST SCH ×4 (07:05→21:00)
[2017-03-24 07:48] VITALS: BP 144/51
[2017-03-24] MEDS: INSULIN LISPRO 100 UNITS/ML SUBCUT SCH ×4 (07:50→21:00)
[2017-03-24] MEDS: CLOPIDOGREL 75MG TABLET PO SCH (08:42)
[2017-03-24] MEDS: FAMOTIDINE 20MG/2ML VIAL IV SCH ×2 (08:42→21:00)
[2017-03-24] MEDS: ZINC SULFATE 220 MG ( 50 ) CAPSULE PO SCH (08:42)
[2017-03-24] MEDS: TRAMADOL 50MG TABLET PO PRN (08:43)
[2017-03-24] MEDS: METOPROLOL TARTRATE 25MG TABLET PO SCH ×2 (08:43→22:07)
[2017-03-24] MEDS: ASCORBIC ACID 500 MG TABLET PO SCH ×2 (08:43→22:07)
[2017-03-24 09:12] LABS: HEMATOCRIT 32.7 % (36.0-48.0); HEMOGLOBIN 10.6 g/dL (12.0-16.0); MEAN CORPUSCULAR HEMOGLOBIN 32.9 pg (28.0-32.0); MEAN CORPUSCULAR VOLUME 101.8 fL (81.0-99.0); PLATELET 228 x1000/uL (130-400); RED BLOOD CELL COUNT 3.21 mill/uL (4.2-5.4); RED CELL DISTRIBUTION WIDTH 14.5 % (11.6-14.6)
[2017-03-24 12:00] VITALS: BP 133/49
[2017-03-24] MEDS: ENOXAPARIN 40MG/0.4ML SYR SUBCUT SCH (13:14)
[2017-03-24] MEDS: INSULIN DETEMIR UD 100 UNITS/ML SYR SUBCUT SCH (13:16)
[2017-03-24 16:36] VITALS: BP 141/76
[2017-03-24 20:00] VITALS: BP 127/64
[2017-03-24] MEDS: PHENYTOIN SODIUM EXTENDED 100MG CAPSULE PO SCH (22:02)
[2017-03-25] VITALS (8 sets, daily range): BP systolic 103–125; BP diastolic 44–69
[2017-03-25] MEDS: FUROSEMIDE 40MG/4ML VIAL IVP SCH ×2 (06:15→17:44)
[2017-03-25] MEDS: SPIRONOLACTONE 25MG TABLET PO SCH ×2 (06:15→17:45)
[2017-03-25] MEDS: BLOOD SUGAR DIAGNOSTIC STRIP TEST SCH ×4 (06:15→20:15)
[2017-03-25] MEDS: INSULIN LISPRO 100 UNITS/ML SUBCUT SCH ×4 (07:41→20:41)
[2017-03-25] MEDS: FAMOTIDINE 20MG/2ML VIAL IV SCH ×2 (09:00→20:34)
[2017-03-25] MEDS: METOPROLOL TARTRATE 25MG TABLET PO SCH ×2 (09:58→20:35)
[2017-03-25] MEDS: ASCORBIC ACID 500 MG TABLET PO SCH ×2 (09:58→20:34)
[2017-03-25] MEDS: ZINC SULFATE 220 MG ( 50 ) CAPSULE PO SCH (09:58)
[2017-03-25] MEDS: CLOPIDOGREL 75MG TABLET PO SCH (09:58)
[2017-03-25] MEDS: INSULIN DETEMIR UD 100 UNITS/ML SYR SUBCUT SCH (10:06)
[2017-03-25] MEDS ORDERED: ENOXAPARIN 40MG/0.4ML SYR SUBCUT SCH (14:10)
[2017-03-25] MEDS: MEROPENEM 1000MG in NORMAL SALINE 100ML IV SCH ×2 (15:49→20:34)
[2017-03-25] MEDS: PHENYTOIN SODIUM EXTENDED 100MG CAPSULE PO SCH (20:34)
== END 2017-03-25 23:40 | DRG 292 ==
LOC: ER 03:30 → 6WST 06:35 → ENRESERV 07:05 → SUPCPDRO 07:40
PROVIDERS: ADMIT Internal Medicine; ATTEND Internal Medicine
DX: I11.0 Hypertensive heart disease with heart failure (principal); E44.0 Moderate protein-calorie malnutrition; E11.42 Type 2 diabetes mellitus with diabetic polyneuropathy; E11.621 Type 2 diabetes mellitus with foot ulcer; E66.01 Morbid (severe) obesity due to excess calories; L97.529 Non-pressure chronic ulcer of other part of left foot with unspecified severity; M86.672 Other chronic osteomyelitis, left ankle and foot; I42.9 Cardiomyopathy, unspecified; I48.0 Paroxysmal atrial fibrillation; Z68.42 Body mass index [BMI] 45.0-49.9, adult; I50.43 Acute on chronic combined systolic (congestive) and diastolic (congestive) heart failure; D63.8 Anemia in other chronic diseases classified elsewhere; E03.9 Hypothyroidism, unspecified; G40.909 Epilepsy, unspecified, not intractable, without status epilepticus; Z91.19 Patient's noncompliance with other medical treatment and regimen; Z88.0 Allergy status to penicillin; Z79.899 Other long term (current) drug therapy
CPT/HCPCS: 36415; 80053; 80061; 80185; 80305; 81001; 82550; 82553; 82607; 82746; 82962; 83036; 84439; 84443; 84484; 85025; 85027; 85610; 85730; 87077; 87086; 87186; 93005; 93970; 99285; J1200; J1650; J1815; J1940; J2060; J2185; J2270; J3490